=== PATIENT | female | born 1975 | race Two or more races ===

== ENCOUNTER 2016-05-04 11:54 | Emergency (ER) | payer SELFPAY ==
--- NOTE | 2016-05-04 12:40 | ED Physician Chart ---
Chief Complaint/HPI - Patient Information Date Seen:: 05/04/16 Time Seen:: 12:15 Chief Complaint:: periumbilical pain History of Present Illness:: two hours ago at work noted umbilical numbness and felt a pulling sensation from anterior (umbilicus) toward the spine. [place] a lump about 3 cm to left of the umbilicus which subsided with pressure. Allergies:: Allergies Allergy/AdvReac Type Severity Reaction Status Date / Time No Known Allergies Allergy Verified 05/04/16 12:17 Vitals:: Vital Signs - 8 hr 05/04/16 12:00 Temp 97.4 F HR 74 RR 20 BP 140/75 O2 Sat % 99 Historian:: Patient Review:: Nurse's Note Reviewed Review of Systems - Review of Systems General/Constitutional: No fever, No chills Skin: No skin lesions Head: No headache Eyes: No loss of vision ENT: No earache Neck: No neck pain Cardio Vascular: No chest pain, No palpitations Pulmonary: No SOB GI: No nausea, No vomiting, Pain G/U: No dysuria Musculoskeletal: No bone or joint pain Endocrine: No polyuria Psychiatric: No prior psych history Hematopoietic: Bruising Allergic/Immuno: No urticaria Neurological: No syncope Past Medical History - Past Medical History Past Medical History: No significant medical hx Family History: Heart disease, Other (mother had polycystic kidneys; both parents had CAD) Social History: Smoker, Alcohol (smokes about 6 cigarets per day and occasionally drinks alcohol) Surgical History: other ("tummy tuck" 7 years ago) Psychiatricy History: None Family Medical History - Family Member Mother History Unknown: Yes Age: 54 Living Status: Hx Family Cancer: No Hx Family Coronary Artery Disease: No Hx Family Congestive Heart Failure: No Hx Family Hypertension: No Hx Family Stroke: No Hx Family Diabetes: No Hx Family Seizures: No Hx Family Dementia: No Hx Family AIDS: No Hx Family HIV: No Hx Family COPD: No Hx Family Hepatitis: No Hx Family Psychiatric Problems: No Hx Family Tuberculosis: No Other Medical History: RENAL FAILURE, [place] Father Age: 42 Living Status: Other Medical History: RENAL FAILURE, [place] Physical Exam - Physical Examination General/Constitutional: Well-developed, well-nourished, Alert Head: Atraumatic Eyes: Lids, conjuctiva normal Skin: Nl inspection ENMT: External ears, nose nl, TM canals nl, Nasal exam nl, Lips, teeth, gums nl , Oropharynx nl, Tonsils nl Neck: No nuchal rigidity Respiratory: Nl effort/Exclusion Other Respiratory comments:: minimal right mid lung wheezing otherwise clear Cardio Vascular: RRR GI: No organomegaly, Normal BS's, Nondistended, No mass/bruits Other GI comments:: umbilical hernia : No CVA tenderness Extremities: No tenderness or effusion Neuro/Psych: Alert/oriented Misc: Normal back Assessment - Assessment General Assessment: suggested referral from PCP to general surgeon. Explained to patient about incarcarated and strangulated hernias and that the latter is an emergency. ED Septic Shock - . Is Septic Shock (SBP<90, OR Lactate>4 mmol\\L) present?: No - <6hrs of presentation: Vital Signs: Vital Signs - 8 hr // 12:00 Temp 97.4 F HR 74 RR 20 BP 140/75 O2 Sat % 99 Reassessment (Disposition) - Reassessment Reassessment Condition:: Unchanged - Diagnosis Diagnosis:: umbilical hernia - Aftercare/Follow up Instructions Aftercare/Follow-Up Instructions:: Refer to Discharge Instructions - Patient Disposition Discharge/Transfer:: Home Condition at Disposition:: Stable, Unchanged
== END 2016-05-04 12:45 | disposition home or self-care (01) ==
LOC: ER 11:54
DX: K42.9 Umbilical hernia without obstruction or gangrene (principal); F17.210 Nicotine dependence, cigarettes, uncomplicated
CPT/HCPCS: Z7502

== ENCOUNTER 2016-08-17 10:25 | Emergency (ER) | payer SELFPAY ==
[2016-08-17] MEDS ORDERED: Albuterol Nebulizer 2.5mg/3mL HHN STA (10:46)
[2016-08-17] MEDS ORDERED: Albuterol Nebulizer 2.5mg/3mL HHN ONE (10:53)
--- NOTE | 2016-08-17 10:53 | ED Physician Chart ---
Chief Complaint/HPI - Patient Information Date Seen:: 08/17/16 Time Seen:: 10:40 Chief Complaint:: cough History of Present Illness:: The patient developed a cough productive of green sputum 6 days ago. She's had pleuritic chest pain and shortness of breath since last night. She's also had chills and mild diaphoresis. She did not take her temperature. She started a Z -Brock 6 days ago. She had a normal chest x-ray 6-8 months ago. Allergies:: Allergies Allergy/AdvReac Type Severity Reaction Status Date / Time No Known Allergies Allergy Verified 08/17/16 10:35 Vitals:: Vital Signs - 8 hr 08/17/16 10:25 Temp 97.6 F HR 64 RR 16 BP 140/79 O2 Sat % 97 Historian:: Patient Review:: Nurse's Note Reviewed Review of Systems - Review of Systems General/Constitutional: Chills Skin: No skin lesions Head: No headache Eyes: No loss of vision ENT: No earache, No sore throat Neck: No neck pain, No swelling, No stiffness Cardio Vascular: Chest pain Pulmonary: SOB GI: No nausea, No vomiting G/U: No dysuria Musculoskeletal: No bone or joint pain, No muscle pain Endocrine: No polyuria, No polydipsia Psychiatric: No prior psych history, No depression, No anxiety Hematopoietic: No bruising Allergic/Immuno: No urticaria Neurological: No syncope, No focal symptoms Past Medical History - Past Medical History Past Medical History: No significant medical hx Family History: HTN, Other (congestive heart failure) Social History: Smoker, Other (smokes 3-4 cigarettes per day) Surgical History: None Psychiatricy History: None Medication: Reviewed Family Medical History - Family Member Mother History Unknown: Yes Living Status: Hx Family Cancer: No Hx Family Coronary Artery Disease: No Hx Family Congestive Heart Failure: No Hx Family Hypertension: No Hx Family Stroke: No Hx Family Diabetes: No Hx Family Seizures: No Hx Family Dementia: No Hx Family AIDS: No Hx Family HIV: No Hx Family COPD: No Hx Family Hepatitis: No Hx Family Psychiatric Problems: No Hx Family Tuberculosis: No Father Living Status: Other Medical History: heart disease Physical Exam - Physical Examination General/Constitutional: Well-developed, well-nourished, Alert Head: Atraumatic Eyes: Lids, conjuctiva normal, PERRL Skin: Nl inspection, No rash, No skin lesions, No ecchymosis, Well hydrated, No lymphadenopathy ENMT: External ears, nose nl, TM canals nl Neck: No nuchal rigidity Respiratory: Nl effort/Exclusion Other Respiratory comments:: Prolonged expirations and 1.5 out of four diffuse expiratory wheezing. Cardio Vascular: RRR GI: No tenderness/rebounding/guarding, No organomegaly, No hernia, Normal BS's : No CVA tenderness Extremities: No tenderness or effusion, Full ROM Neuro/Psych: Alert/oriented, No focal deficits Misc: Normal back Assessment - Assessment General Assessment: Patient refused breathing treatment stating that she gets anxiety attacks and is worried that breathing treatment will initiate one. ED Septic Shock - . Is Septic Shock (SBP<90, OR Lactate>4 mmol\L) present?: No - <6hrs of presentation: Vital Signs: Vital Signs - 8 hr 08/17/16 10:25 Temp 97.6 F HR 64 RR 16 BP 140/79 O2 Sat % 97 Reassessment (Disposition) - Reassessment Reassessment Condition:: Unchanged - Diagnosis Diagnosis:: Acute viral syndrome with wheezing. - Aftercare/Follow up Instructions Aftercare/Follow-Up Instructions:: Refer to Discharge Instructions Medication Prescribed:: Albuterol metered-dose inhaler 2 puffs every 4 hours as necessary - Patient Disposition Discharge/Transfer:: Home Condition at Disposition:: Stable, Unchanged
== END 2016-08-17 11:10 | disposition home or self-care (01) ==
LOC: ER 10:25
DX: B34.9 Viral infection, unspecified (principal); R06.2 Wheezing; F17.210 Nicotine dependence, cigarettes, uncomplicated
CPT/HCPCS: J7613; Z7502